=== PATIENT | male | born 1990 | race African-American/Black ===

== ENCOUNTER 2018-01-04 14:36 | Emergency (ER) | payer OTHER ==
[~2018-01-04] VITALS: Ht 170.2 cm; Wt 83.0 kg
[2018-01-04 14:46] VITALS: BP 150/99
== END 2018-01-04 15:16 ==
LOC: EME 14:36
DX: T18.5XXA Foreign body in anus and rectum, initial encounter (principal); S00.83XA Contusion of other part of head, initial encounter; M54.6 Pain in thoracic spine; Y35.893A Legal intervention involving other specified means, suspect injured, initial encounter; Y92.149 Unspecified place in prison as the place of occurrence of the external cause